=== PATIENT | female | born 1985 | race African-American/Black ===

== ENCOUNTER 2016-07-12 06:13 | Emergency (ER) | payer OTHER ==
[~2016-07-12] VITALS: Ht 165.1 cm; Wt 86.2 kg
[~2016-07-12 06:13] MED LIST: AMOXICILLIN500 MG ORAL; AZITHROMYCIN250 MG ORAL; BACITRACIN-P28.35 GM TP; BACTRIM DS TAB1 EAC1 ORAL; BENADRYL25 MG ORAL; BENADRYL50 MG ORAL; CLINDAMYCIN HC150 MG ORAL; DIFLUCAN100 MG ORAL; EPIPEN 2-P0.3 MG/0.3 IM; IBUPROFEN400 MG ORAL; IBUPROFEN600 MG ORAL; KEFLEX500 MG ORAL; NKM; NORCO 5-325 TA1 EACH ORAL; NYSTATIN OINT15 GM TOPIC; PREDNISONE20 MG ORAL; PREDNISONE50 MG ORAL; TYLENOL325 MG ORAL
[2016-07-12] MEDS ORDERED: NKM (06:23)
[2016-07-12] MEDS ORDERED: Ketorolac 60mg Inj IM ONE (07:00)
[2016-07-12] MEDS ORDERED: Pseudoephedrine 30mg tab ORAL ONE (07:00)
[2016-07-12] MEDS ORDERED: FLONASE ALLERG9.9 ML NS (07:03)
[2016-07-12] MEDS ORDERED: AUGMENTIN 875-1 EAC1 ORAL (07:03)
[2016-07-12] MEDS ORDERED: PSEUDOEPHEDRINE30 MG PO (07:03)
--- NOTE | 2016-07-12 07:15 | Emergency Room Report ---
History of Present Illness General Chief Complaint: Headache Source: Patient Present Illness HPI 30 YO F with 2 days of frontal "sinus pressure" headache. Associated with sinus congestion, mild rhinorrhea, "muffled" hearing bilaterally. Denies fever/ chills, neck pain/stiffness, history of migraine headaches. Denies sick contacts. Didnt take any OTC meds. Allergies: Coded Allergies: PEANUT (Verified Allergy, Unknown, 07/12/16) Patient History Past Medical History: none Past Surgical History: none Pertinent Family History: none Social History: Denies: alcohol use, drug use, smoking Last Menstrual Period: 06/23/2016 Now: No : 2 Para: 2 Immunizations: UTD Reviewed Nursing Documentation: PMH: Agreed, PSxH: Agreed Nursing Documentation-PMH Past Medical History: No History, Except For Hx Asthma: Yes Hx Gastrointestinal Problems: Yes - appendectomy 2001 Review of Systems All Other Systems: negative except mentioned in HPI Physical Exam Vital Signs Date Time Temp Pulse Resp B/P Pulse Ox O2 Delivery O2 Flow Rate FiO2 07/12/16 06:17 98.2 83 16 126/81 99 Room Air Sp02 EP Interpretation: reviewed, normal General Appearance: normal inspection, well appearing, no apparent distress, alert, GCS 15, non-toxic Head: normocephalic, atraumatic Eyes: bilateral eye EOMI, bilateral eye PERRL ENT: normal ENT inspection, hearing grossly normal, normal pharynx, no angioedema, normal voice, TMs + canals normal, uvula midline, nasal congestion, other - +ttp to frontal and maxillary sinuses bilaterally Neck: normal inspection, full range of motion, supple, no meningismus, no bony tend Respiratory: normal inspection, lungs clear, normal breath sounds, no respiratory distress, no retraction, no accessory muscle use, no wheezing Cardiovascular #1: regular rate, rhythm, no edema Gastrointestinal: normal inspection, normal bowel sounds, non tender, soft, no guarding, no hernia Genitourinary: no CVA tenderness Musculoskeletal: normal inspection, back normal, normal range of motion, Jr' s Sign negative Neurologic: normal inspection, alert, oriented x3, responsive, bench grinder III-XII nml as tested, motor strength/tone normal, speech normal Psychiatric: normal inspection, judgement/insight normal, mood/affect normal Skin: normal inspection Lymphatic: normal inspection Medical Decision Making Diagnostic Impression: Primary Impression: Sinusitis Qualified Codes: J01.10 - Acute frontal sinusitis, unspecified Additional Impression: Headache Qualified Codes: G44.89 - Other headache syndrome ER Course 30 YOF with headache, likely from sinusitis. VSS. Afebrile. Low suspicion for SAH or meningitis given well appearance, absence of focal neuro deficits, absence of meningismus, normal vital signs, and duration and intensity of headache is consistent with sinus pressure headache Meds given with improvement Headache improved Neuro exam serially negative for focal deficits Vitals stable on discharge Rx Sudafed, Augmentin, Flonase PMD followup as needed DC home Last Vital Signs Date Time Temp Pulse Resp B/P Pulse Ox O2 Delivery O2 Flow Rate FiO2 07/12/16 06:17 98.2 83 16 126/81 99 Room Air Status: improved Disposition: HOME, SELF-CARE Condition: Improved Scripts Fluticasone Propionate (Flonase Allergy Relief) 9.9 Ml [place].susp 9.9 ML NS BID for Sinus congestion for 7 Days, #1 UNIT Prov: GARFIELD VELAZQUEZ M.D. 07/12/16 Pseudoephedrine Hcl* (SUDAFED*) 30 Mg Tablet 30 MG PO TID for sinus congestion for 7 Days, #30 TAB Prov: GARFIELD VELAZQUEZ M.D. 07/12/16 Amoxicillin/Potassium Clav 875-125* (AUGMENTIN 875-125 TABLET*) 1 Each Tablet 1 TAB ORAL TWICE A DAY for 7 Days, #14 TAB Prov: GARFIELD VELAZQUEZ M.D. 07/12/16 Patient Instructions: Sinus Headache Additional Instructions: - Take sudafed up to 3x a day for sinus congestion/headache - take one before your flight - Take ALL the antibiotics as prescribed until finished - Use Flonase nasal spray 2x a day, one spray each nostril for sinus congestion - Follow up with your doctor in 2-3 days GARFIELD VELAZQUEZ M.D. Jul 12, 2016 07:15
[2016-07-12 07:35] VITALS: BP 126/81
== END 2016-07-12 07:35 | disposition home or self-care (01) ==
LOC: EMR 06:44
DX: J32.9 Chronic sinusitis, unspecified (principal); R51 Headache; J45.909 Unspecified asthma, uncomplicated
CPT/HCPCS: 96372; 99284

== ENCOUNTER 2016-08-20 15:58 | Emergency (ER) | payer OTHER ==
[~2016-08-20] VITALS: Ht 165.1 cm; Wt 81.6 kg
[~2016-08-20 15:58] MED LIST changes: +AUGMENTIN 875-1 EAC1 ORAL; +FLONASE ALLERG9.9 ML NS; +PSEUDOEPHEDRINE30 MG PO
[2016-08-20] MEDS ORDERED: Morphine Sulfate 4mg/ml Inj IVP ONE (16:45)
--- NOTE | 2016-08-20 17:20 | Emergency Room Report ---
History of Present Illness General Chief Complaint: Pain Source: Patient, Medical Record Present Illness HPI Patient is a 31-year-old female who presented after recent surgery to multiple locations on her body with cosmetic surgery. The patient had no one location which had been severely painful however she reported having multiple areas of pain. Patient had been treated in [place]. She denies any current pain prescriptions. She stated that she had not been having any fever. She has not been vomiting. She was noted to have some drains which did no change and drainage. Allergies: Coded Allergies: PEANUT (Verified Allergy, Unknown, 07/12/16) Patient History Past Medical History: see triage record Last Menstrual Period: 08/10/16 Now: No Reviewed Nursing Documentation: PMH: Agreed, PSxH: Agreed Nursing Documentation-PMH Hx Asthma: Yes Hx Gastrointestinal Problems: Yes - appendectomy 2002 Review of Systems All Other Systems: negative except mentioned in HPI Physical Exam Vital Signs Date Time Temp Pulse Resp B/P Pulse Ox O2 Delivery O2 Flow Rate FiO2 08/20/16 16:05 98.1 97 16 111/83 99 Room Air Sp02 EP Interpretation: reviewed, normal General Appearance: normal inspection, well appearing, no apparent distress, alert, GCS 15, non-toxic Head: normocephalic, atraumatic ENT: normal ENT inspection, hearing grossly normal, normal voice Neck: normal inspection, full range of motion, supple, no bony tend Respiratory: normal inspection, lungs clear, normal breath sounds, no respiratory distress, no retraction, no wheezing Cardiovascular #1: regular rate, rhythm, no edema Gastrointestinal: normal inspection, normal bowel sounds, non tender, soft, no guarding, no hernia Genitourinary: no CVA tenderness Musculoskeletal: normal inspection, back normal, normal range of motion Neurologic: normal inspection, alert, oriented x3, responsive, ampoule filler and sealer III-XII nml as tested, speech normal Psychiatric: normal inspection, judgement/insight normal, mood/affect normal Skin: no rash, other - multiple incision CDI, no evident erythema some bruising to both arms Medical Decision Making Diagnostic Impression: Primary Impression: Post-op pain ER Course Patient presented for multiple areas of pain. Differential diagnosis included wasn't limited to postoperative infection, postoperative pain, cellulitis among others.Because of complexity of patient's case laboratory testing and imaging studies were ordered. The patient does appear to have any focal areas of tenderness. Wounds appear to be consistent with a postoperative status. Drains have some serous fluid which does not appear to be purulent nature. Patient was noted to have no fever laboratory testing was ordered. Patient was noted to have minimally elevated white blood count. Patient was noted to have recent surgery and doesn't appear to have a signicant infection requiring IV antibiotics. Patient was given prescriptions for pain medications and oral antibiotics. She was advised to follow up with her physician in the next two days for recheck of labs and drain removal. She was to return if she had any fever, worsening pain or other concerns. Labs Test 08/20/16 17:07 White Blood Count 14.0 K/UL (4.8-10.8) Red Blood Count 4.07 M/UL (4.20-5.40) Hemoglobin 12.6 G/DL (12.0-16.0) Hematocrit 36.8 % (37.0-47.0) Mean Corpuscular Volume 90 FL (80-99) Mean Corpuscular Hemoglobin 31.0 PG (27.0-31.0) Mean Corpuscular Hemoglobin Concent 34.4 G/DL (32.0-36.0) Red Cell Distribution Width 12.1 % (11.6-14.8) Platelet Count 335 K/UL (150-450) Mean Platelet Volume 6.3 FL (6.5-10.1) Neutrophils (%) (Auto) 74.4 % (45.0-75.0) Lymphocytes (%) (Auto) 18.1 % (20.0-45.0) Monocytes (%) (Auto) 4.1 % (1.0-10.0) Eosinophils (%) (Auto) 1.9 % (0.0-3.0) Basophils (%) (Auto) 1.6 % (0.0-2.0) Prothrombin Time 9.4 SEC (9.30-11.50) Prothromb Time International Ratio 0.9 (0.9-1.1) Activated Partial Thromboplast Time 25 SEC (23-33) Sodium Level 140 mEQ/L (135-145) Potassium Level 3.9 mEQ/L (3.4-4.9) Chloride Level 100 mEQ/L (98-107) Carbon Dioxide Level 24 mEQ/L (20-30) Anion Gap 16 (5-15) Blood Urea Nitrogen 11 mg/dL (7-23) Creatinine 0.7 mg/dL (0.5-0.9) Estimat Glomerular Filtration Rate > 60 mL/min (>60) Glucose Level 89 mg/dL (74-106) Calcium Level 8.7 mg/dL (8.6-10.2) Total Bilirubin 0.5 mg/dL (0.0-1.2) Aspartate Amino Transf (AST/SGOT) 81 U/L (5-40) Alanine Aminotransferase (ALT/SGPT) 100 U/L (3-33) Alkaline Phosphatase 58 U/L (35-104) Total Creatine Kinase 149 U/L (26-140) Total Protein 6.6 g/dL (6.6-8.7) Albumin 3.5 g/dL (3.5-5.2) Globulin 3.1 g/dL Albumin/Globulin Ratio 1.1 (1.0-2.7) Human Chorionic Gonadotropin, Qual Negative Last Vital Signs Date Time Temp Pulse Resp B/P Pulse Ox O2 Delivery O2 Flow Rate FiO2 08/20/16 16:05 98.1 97 16 111/83 99 Room Air Status: improved Disposition: HOME, SELF-CARE Condition: Stable Scripts Cephalexin* (KEFLEX*) 500 Mg Capsule 500 MG ORAL Q6H, #28 CAP 0 Refills Prov: Norman Urbano 08/20/16 Hydrocodone Bit/Acetaminophen 5-325* (NORCO 5-325*) 1 Each Tablet 1 TAB ORAL Q6H Y for For Pain, #10 TAB 0 Refills Prov: Norman Urbano 08/20/16 [facility] ([facility]P) Norman Urbano Aug 20, 2016 17:20
[2016-08-20 17:25] LABS: BASOPHILS % (AUTO) 1.6 % (0.0-2.0); EOSINOPHILS % (AUTO) 1.9 % (0.0-3.0); LYMPHOCYTES % (AUTO) 18.1 % (20.0-45.0); MEAN CORPUSCULAR HGB CONC 34.4 G/DL (32.0-36.0); MEAN CORPUSCULAR VOLUME 90 FL (80-99); MEAN PLATELET VOLUME 6.3 FL (6.5-10.1); MONOCYTES % (AUTO) 4.1 % (1.0-10.0); NEUTROPHILS % (AUTO) 74.4 % (45.0-75.0); PLATELET COUNT 335 K/UL (150-450); RED BLOOD COUNT 4.07 M/UL (4.20-5.40); RED CELL DISTRIBUTION WIDTH 12.1 % (11.6-14.8)
[2016-08-20 17:31] VITALS: BP 119/71
[2016-08-20 17:38] LABS: INR 0.9 (0.9-1.1); PROTHROMBIN TIME 9.4 SEC (9.30-11.50)
[2016-08-20 17:43] LABS: ALANINE AMINOTRANSFERASE 100 U/L (3-33); ALBUMIN/GLOBULIN RATIO 1.1 (1.0-2.7); ANION GAP 16 (5-15); ASPARTATE AMINO TRANSFERASE 81 U/L (5-40); CALCIUM 8.7 mg/dL (8.6-10.2); CARBON DIOXIDE 24 mEQ/L (20-30); CHLORIDE 100 mEQ/L (98-107); CREATININE 0.7 mg/dL (0.5-0.9); GLOMERULAR FILTRATION RATE > 60 mL/min (>60); HEMOLYSIS 38; POTASSIUM 3.9 mEQ/L (3.4-4.9); SODIUM 140 mEQ/L (135-145); TOTAL PROTEIN 6.6 g/dL (6.6-8.7)
[2016-08-20 17:57] VITALS: BP 121/74
[2016-08-20] MEDS ORDERED: cefTRIAXone 1 GM in NS 55 ML IVPB ONE (18:00)
[2016-08-20] MEDS ORDERED: Tubing IV Secondary IV ONE (18:02)
[2016-08-20] MEDS ORDERED: NS 55 ML IV ONE (18:02)
[2016-08-20] MEDS ORDERED: NORCO 5-325 TA1 EACH ORAL (19:31)
[2016-08-20] MEDS ORDERED: KEFLEX500 MG ORAL (19:31)
[2016-08-20 20:36] VITALS: BP 124/84
[2016-08-20 20:39] VITALS: BP 124/84
== END 2016-08-20 20:39 | disposition home or self-care (01) ==
LOC: EMR 16:23
DX: G89.18 Other acute postprocedural pain (principal); J45.909 Unspecified asthma, uncomplicated; Z91.010 Allergy to peanuts; Z90.49 Acquired absence of other specified parts of digestive tract
CPT/HCPCS: 36415; 80053; 82550; 84703; 85025; 85610; 85730; 96374; 96375; 99284; J0696; J2270; J2405

== ENCOUNTER 2016-11-17 14:10 | Emergency (ER) | payer OTHER ==
[~2016-11-17] VITALS: Ht 165.1 cm; Wt 79.4 kg
[2016-11-17] MEDS ORDERED: OCUFLOX5 ML OP (14:38)
[2016-11-17 14:40] VITALS: BP 122/79
[2016-11-17 14:43] VITALS: BP 122/79
--- NOTE | 2016-11-17 18:23 | Emergency Room Report ---
History of Present Illness General Chief Complaint: Eye Problems Source: Patient, Medical Record Present Illness HPI The patient is a 31-year-old female presenting with bilateral eye pain. She noticed eye redness as well as yellow discharge yesterday which has continued today. She denies any known sick contacts or recent travel. Pain is described as a 9/10 burning to both eyes, does not radiate. Worse with light. She denies any other symptoms including N, V, F, chills, SAUNDERS, dizziness Allergies: Coded Allergies: PEANUT (Verified Allergy, Unknown, 07/12/16) Patient History Past Medical History: see triage record Pertinent Family History: none Last Menstrual Period: 10/21/16 Reviewed Nursing Documentation: PMH: Agreed, PSxH: Agreed Nursing Documentation-PMH Past Medical History: No History, Except For Hx Asthma: Yes - Acute bronchitis Hx Gastrointestinal Problems: Yes - appendectomy 2001 Review of Systems All Other Systems: negative except mentioned in HPI Physical Exam Vital Signs Date Time Temp Pulse Resp B/P Pulse Ox O2 Delivery O2 Flow Rate FiO2 11/17/16 14:19 98.2 100 14 122/79 98 Room Air Sp02 EP Interpretation: reviewed, normal General Appearance: no apparent distress, alert, GCS 15, non-toxic Head: normocephalic, atraumatic Eyes: bilateral eye PERRL, bilateral eye Scleral Injection, bilateral eye other - yellow crusting ENT: hearing grossly normal, normal pharynx, no angioedema, normal voice Neurologic: alert, oriented x3, responsive, motor strength/tone normal, sensory intact, speech normal Psychiatric: judgement/insight normal, memory normal, mood/affect normal, no suicidal/homicidal ideation Skin: normal color, no rash, warm/dry, well hydrated Lymphatic: no adenopathy Medical Decision Making PA Attestation Dr. Becker is my supervising physician. Patient management was discussed with my supervising physician Diagnostic Impression: Primary Impression: Bacterial conjunctivitis ER Course The patient is a 31-year-old female presenting with bilateral eye pain Differential diagnoses considered but not limited to allergic conjunctivitis, bacterial conjunctivitis, viral conjunctivitis, blepharitis, hordeolum Physical exam: Vitals within normal limits. No apparent distress HEENT: There is bilat eye injection with yellow discharge. No eyelid edema. EOMI. PERRL Otherwise exam is unremarkable The patient will be discharged home with a prescription for ofloxacin and will follow up with PMD. ER precautions are given Last Vital Signs Date Time Temp Pulse Resp B/P Pulse Ox O2 Delivery O2 Flow Rate FiO2 11/17/16 14:43 98.2 67 14 122/79 98 Room Air Status: improved Disposition: HOME, SELF-CARE Condition: Improved Scripts Ofloxacin (OCUFLOX) 5 Ml Drops 1 DROP OP Q4HR, #5 ML Prov: CYNDI WHEELER 11/17/16 [facility] Patient Instructions: Bacterial Conjunctivitis Additional Instructions: I discussed my findings with the patient. All questions and concerns have been answered. Treatment and medication compliance have been addressed. I advised the patient that they need to follow up with PMD in 3-5 days. Return to ED if symptoms worsen, new symptoms arise, or if needed for any reason. Patient verbalized understanding of discharge instructions. CYNDI WHEELER Nov 17, 2016 18:23
== END 2016-11-17 14:55 | disposition home or self-care (01) ==
LOC: EMR 14:30
DX: H10.89 Other conjunctivitis (principal); B96.89 Other specified bacterial agents as the cause of diseases classified elsewhere; Z91.010 Allergy to peanuts
CPT/HCPCS: 99283

== ENCOUNTER 2016-12-02 20:48 | Emergency (ER) | payer OTHER ==
[~2016-12-02] VITALS: Ht 165.1 cm; Wt 79.4 kg
[~2016-12-02 20:48] MED LIST changes: +OCUFLOX5 ML OP
[2016-12-02 21:00] VITALS: BP 122/80
[2016-12-02] MEDS ORDERED: IBUPROFEN600 MG ORAL (21:09)
[2016-12-02] MEDS ORDERED: ALBUTEROL SULF8.5 GM INH (21:09)
[2016-12-02] MEDS ORDERED: NEXAFED30 MG ORAL (21:09)
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
[2016-12-02 21:21] VITALS: BP 122/80
== END 2016-12-02 21:21 | disposition home or self-care (01) ==
LOC: EMR 21:11
DX: J06.9 Acute upper respiratory infection, unspecified (principal); B97.89 Other viral agents as the cause of diseases classified elsewhere; Z91.010 Allergy to peanuts; Z90.89 Acquired absence of other organs
CPT/HCPCS: 99284

== ENCOUNTER 2017-05-21 12:35 | Emergency (ER) | payer MEDICAID, OTHER ==
[~2017-05-21] VITALS: Ht 165.1 cm; Wt 79.4 kg
[~2017-05-21 12:35] MED LIST changes: +ALBUTEROL SULF8.5 GM INH; +NEXAFED30 MG ORAL
[2017-05-21 12:38] VITALS: BP 125/67
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
[2017-05-21] MEDS ORDERED: IBUPROFEN600 MG ORAL (13:25)
[2017-05-21] MEDS ORDERED: ROBAXIN500 MG PO (13:25)
[2017-05-21 13:47] VITALS: BP 128/69
== END 2017-05-21 13:50 | disposition home or self-care (01) ==
LOC: EMR 13:00
DX: M54.2 Cervicalgia (principal); M54.9 Dorsalgia, unspecified; Z90.49 Acquired absence of other specified parts of digestive tract; J45.909 Unspecified asthma, uncomplicated; Z91.010 Allergy to peanuts
CPT/HCPCS: 99283

== ENCOUNTER 2017-06-27 09:58 | Emergency (ER) | payer MEDICAID ==
[~2017-06-27] VITALS: Ht 165.1 cm; Wt 77.1 kg
[~2017-06-27 09:58] MED LIST changes: +ROBAXIN500 MG PO
[2017-06-27 10:15] VITALS: BP 127/77
[2017-06-27] MEDS ORDERED: Ketorolac 30mg Inj IV ONE (10:30)
[2017-06-27] MEDS ORDERED: ZOFRAN ODT4 MG ORAL (11:23)
[2017-06-27] MEDS ORDERED: IBUPROFEN600 MG ORAL (11:23)
[2017-06-27] MEDS ORDERED: AMOXICILLIN500 MG ORAL (11:23)
[2017-06-27 18:19] VITALS: BP 136/77
--- NOTE | 2017-06-29 21:49 | Emergency Room Report ---
History of Present Illness General Chief Complaint: Sore Throat Source: Patient Present Illness HPI 31-year-old female presents ED for evaluation. States for the last 3 days she' s been experiencing sore throat with chills and body aches. Afebrile in triage. States it is painful to swallow. Pain is throbbing, 8 out of 10, nonradiating. Denies cough. Denies earache. No other aggravating or relieving factors. Denies any other associated symptoms Allergies: Coded Allergies: PEANUT (Verified Allergy, Unknown, 07/12/16) Patient History Past Medical History: asthma Past Surgical History: appy Pertinent Family History: none Social History: Denies: smoking, alcohol use, drug use Now: No Immunizations: UTD Reviewed Nursing Documentation: PMH: Agreed, PSxH: Agreed Nursing Documentation-PMH Past Medical History: No Stated History Hx Asthma: Yes - Acute bronchitis Hx Gastrointestinal Problems: Yes - appendectomy 2001 Review of Systems All Other Systems: negative except mentioned in HPI Physical Exam Vital Signs Date Time Temp Pulse Resp B/P (MAP) Pulse Ox O2 Delivery O2 Flow Rate FiO2 06/27/17 10:08 98.1 76 16 127/77 95 Room Air 98.1 Sp02 EP Interpretation: reviewed, normal General Appearance: no apparent distress, alert, GCS 15, non-toxic Head: normocephalic, atraumatic Eyes: bilateral eye normal inspection, bilateral eye PERRL ENT: hearing grossly normal, normal voice, TMs + canals normal, pharyngeal erythema, tonsillar exudate Neck: full range of motion, supple/symm/no masses Respiratory: chest non-tender, lungs clear, normal breath sounds, speaking full sentences Cardiovascular #1: regular rate, rhythm, no edema Cardiovascular #2: 2+ carotid (R), 2+ carotid (L), 2+ radial (R), 2+ radial (L) , 2+ dorsalis pedis (R), 2+ dorsalis pedis (L) Gastrointestinal: normal bowel sounds, non tender, soft, non-distended, no guarding, no rebound Rectal: deferred Genitourinary: normal inspection, no CVA tenderness Musculoskeletal: back normal, gait/station normal, normal range of motion, non- tender Neurologic: alert, oriented x3, responsive, motor strength/tone normal, sensory intact, speech normal Psychiatric: judgement/insight normal, memory normal, mood/affect normal, no suicidal/homicidal ideation Reflexes: 3+ bicep (R), 3+ bicep (L), 3+ tricep (R), 3+ tricep (L), 3+ knee (R) , 3+ knee (L) Skin: normal color, no rash, warm/dry, well hydrated Lymphatic: no adenopathy Medical Decision Making Diagnostic Impression: Primary Impression: Pharyngitis Qualified Codes: J02.9 - Acute pharyngitis, unspecified ER Course Hospital Course 31-year-old female presents to ED complaining of sore throat + chills Differential diagnoses include: URI, pharyngitis, otitis media Clinical course Patient placed on stretcher. After initial history, physical exam reveals a female in no acute distress. Bilateral TM unremarkable. There is pharyngeal erythema w/ tonsillar exudates. No lymphadenopathy. Clinical findings consistent with pharyngitis. Patient given IV fluids, Toradol. On reassessment feels better. Discussed findings with patient Diagnosis - pharyngitis Stable and discharged home with prescriptions for Motrin, amoxicillin, zofran. Instructed to followup with PMD. return to ED if symptoms recur or worsen Last Vital Signs Date Time Temp Pulse Resp B/P (MAP) Pulse Ox O2 Delivery O2 Flow Rate FiO2 06/27/17 18:19 97.9 16 136/77 100 06/27/17 10:15 Room Air 06/27/17 10:08 76 Status: improved Disposition: HOME, SELF-CARE Condition: Stable Scripts Ondansetron Odt* (ZOFRAN ODT*) 4 Mg Tab.rapdis 4 MG ORAL Q6H Y for Nausea & Vomiting, #30 TAB 0 Refills Prov: SHELLY ORNELAS M.D. 06/27/17 Ibuprofen* (MOTRIN*) 600 Mg Tablet 600 MG ORAL Q8H Y for For Pain, #30 TAB 0 Refills Prov: SHELLY ORNELAS M.D. 06/27/17 Amoxicillin* (AMOXIL*) 500 Mg Capsule 500 MG ORAL THREE TIMES A DAY, #21 CAP Prov: SHELLY ORNELAS M.D. 06/27/17 Referrals: [facility],REFERRING (PCP) Patient Instructions: Pharyngitis, [id number] SHELLY ORNELAS M.D. Jun 29, 2017 21:49
== END 2017-06-27 12:10 | disposition home or self-care (01) ==
LOC: EMR 11:20
DX: J02.9 Acute pharyngitis, unspecified (principal); J45.909 Unspecified asthma, uncomplicated; Z91.010 Allergy to peanuts
CPT/HCPCS: 96374; 96375; 99284; J1885; J2405

== ENCOUNTER 2018-04-11 03:07 | Emergency (ER) | payer MEDICAID ==
[~2018-04-11] VITALS: Ht 165.1 cm; Wt 77.1 kg
[~2018-04-11 03:07] MED LIST changes: +ZOFRAN ODT4 MG ORAL
[2018-04-11] MEDS ORDERED: LORAZEPAM2 MG ORAL (03:18)
[2018-04-11 03:19] VITALS: BP 137/95
[2018-04-11] MEDS ORDERED: Sodium Chloride 500ML 500 ML IV ONE (03:41)
[2018-04-11] MEDS ORDERED: Albuterol ud Inhalation HHN ONE (03:45)
[2018-04-11] MEDS ORDERED: Ipratropium 0.02% Inh Soln 2.5ml UD HHN ONE (03:45)
[2018-04-11 03:53] LABS: APPEARANCE,URINE SLIGHTLY CLOUDY; BILIRUBIN, URINE NEGATIVE (NEGATIVE); GLUCOSE, URINE (UA) NEGATIVE (NEGATIVE); KETONES,URINE 1+ (NEGATIVE); LEUKOCYTE ESTERASE ,URINE 2+ (NEGATIVE); NITRITE,URINE NEGATIVE (NEGATIVE); PH,URINE 6 (4.5-8.0); PROTEIN,URINE 2+ (NEGATIVE); UROBILINOGEN,URINE NORMAL MG/DL (0.0-1.0)
[2018-04-11 04:06] LABS: COLOR,URINE YELLOW
--- NOTE | 2018-04-11 04:24 | Emergency Room Report ---
History of Present Illness General Chief Complaint: Vaginal Source: Patient Present Illness HPI 32-year-old female presents ED for evaluation. Complaining of sore throat and chest tightness 1 day. Notes cough. History of bronchitis. Cough is dry. Denies fevers chills. Pain is dull, 7 out of 10, nonradiating. States she feels dehydrated. Also states that she pulled a condom out from her vagina today. States it was there for approximately 2 days. Notes a foul discharge. Denies any pelvic pain. Denies any spotting. No other aggravating relieving factors. Denies any other associated symptoms Allergies: Coded Allergies: PEANUT (Verified Allergy, Unknown, 04/11/18) Patient History Past Medical History: asthma Past Surgical History: appy Pertinent Family History: none Social History: Denies: smoking, alcohol use, drug use Last Menstrual Period: 03/23/2018 Now: No Immunizations: UTD Reviewed Nursing Documentation: PMH: Agreed; PSxH: Agreed Nursing Documentation-PMH Hx Asthma: Yes - Acute bronchitis Hx Gastrointestinal Problems: Yes - appendectomy 2001 Review of Systems All Other Systems: negative except mentioned in HPI Physical Exam Vital Signs Date Time Temp Pulse Resp B/P (MAP) Pulse Ox O2 Delivery O2 Flow Rate FiO2 04/11/18 03:11 98.4 113 22 137/95 98 04/11/18 03:19 Room Air 04/11/18 03:52 21 Sp02 EP Interpretation: reviewed, normal General Appearance: no apparent distress, alert, GCS 15, non-toxic Head: normocephalic, atraumatic Eyes: bilateral eye normal inspection, bilateral eye PERRL ENT: hearing grossly normal, normal pharynx, no angioedema, normal voice, TMs + canals normal Neck: full range of motion, supple/symm/no masses Respiratory: chest non-tender, decreased breath sounds, speaking full sentences Cardiovascular #1: regular rate, rhythm, no edema Cardiovascular #2: 2+ carotid (R), 2+ carotid (L), 2+ radial (R), 2+ radial (L) , 2+ dorsalis pedis (R), 2+ dorsalis pedis (L) Gastrointestinal: normal bowel sounds, non tender, soft, non-distended, no guarding, no rebound Rectal: deferred Genitourinary: no CVA tenderness, other - real estate officer present - white cervical discharge. no CMT. no adnexal tenderness Musculoskeletal: back normal, gait/station normal, normal range of motion, non- tender Neurologic: alert, oriented x3, responsive, motor strength/tone normal, sensory intact, speech normal Psychiatric: judgement/insight normal, memory normal, mood/affect normal, no suicidal/homicidal ideation Reflexes: 3+ bicep (R), 3+ bicep (L), 3+ tricep (R), 3+ tricep (L), 3+ knee (R) , 3+ knee (L) Skin: normal color, no rash, warm/dry, well hydrated Lymphatic: no adenopathy Medical Decision Making Diagnostic Impression: Primary Impression: Vaginal discharge Additional Impression: Bronchitis ER Course Hospital Course 32-year-old female presents to ED complaining of SOB, sore throat. also c/o vaginal discharge Differential diagnoses include: URI, bronchitis, asthma/COPD, pneumonia Clinical course Patient placed on stretcher. After initial history, physical exam reveals female in no acute distress. There is minimal pharyngeal erythema. No exudates. No lymphadenopathy. Reduced breath sounds bilaterally. Warehouse Handler present. On pelvic exam there is no evidence of foreign body. There is significant cervical discharge. wet mount collected i ordered nebulizer treatments, IVFs, wet mount, UA UA shows some bacteria, wet mount also shows some bacteria no clue cells or yeast. Concerning for STI. Discussed with patient. Ordered Rocephin here we'll discharge with doxycycline. breathing overall improved. Consistent with bronchitis Safe for discharge with close outpatient follow-up Diagnosis - bronchitis, vaginal discharge Stable and discharged home with prescriptions for Rx doxycycline, albuterol, prednisone. Instructed to followup with PMD. Return to ED if symptoms recur or worsen Labs Test 04/11/18 03:42 Urine Color Yellow Urine Appearance Slightly cloudy Urine pH 6 (4.5-8.0) Urine Specific [place] 1.025 (1.005-1.035) Urine Protein 2+ (NEGATIVE) Urine Glucose (UA) Negative (NEGATIVE) Urine Ketones 1+ (NEGATIVE) Urine Blood 1+ (NEGATIVE) Urine Nitrite Negative (NEGATIVE) Urine Bilirubin Negative (NEGATIVE) Urine Urobilinogen Normal MG/DL (0.0-1.0) Urine Leukocyte Esterase 2+ (NEGATIVE) Urine RBC 0-2 /HPF (0 - 2) Urine WBC 10-15 /HPF (0 - 2) Urine Squamous Epithelial Cells Few /LPF (NONE/OCC) Urine Bacteria Few /HPF (NONE) Urine Mucus Many /LPF (NONE/OCC) Urine HCG, Qualitative Negative (NEGATIVE) Last Vital Signs Date Time Temp Pulse Resp B/P (MAP) Pulse Ox O2 Delivery O2 Flow Rate FiO2 04/11/18 03:54 90 20 97 Room Air 21 04/11/18 03:19 98.4 137/95 Status: improved Disposition: HOME, SELF-CARE Condition: Stable Scripts Prednisone* (PREDNISONE*) 20 Mg Tablet 40 MG ORAL DAILY for 5 Days, TAB Prov: Timothy Gilman MD 04/11/18 Albuterol Sulfate* (ALBUTEROL SULFATE MDI*) 8.5 Gm Hfa.aer.ad 2 PUFF INH Q6H, #1 EA 0 Refills Prov: Timothy Gilman MD 04/11/18 Doxycycline Monohydrate* (DOXYCYCLINE MONOHYDRATE*) 100 Mg Capsule 100 MG ORAL Q12H, #14 CAP 0 Refills Prov: Timothy Gilman MD 04/11/18 Referrals: [facility],REFERRING (PCP) Timothy Gilman MD Apr 11, 2018 04:24
[2018-04-11] MEDS ORDERED: DOXYCYCLINE MO100 MG ORAL (04:27)
[2018-04-11] MEDS ORDERED: PREDNISONE20 MG ORAL (04:27)
[2018-04-11] MEDS ORDERED: ALBUTEROL SULF8.5 GM INH (04:27)
[2018-04-11] MEDS ORDERED: Lidocaine 1% MPF 10mg/ml 5ml INJ ONE (04:30)
[2018-04-11 04:57] VITALS: BP 139/87
== END 2018-04-11 04:59 | disposition home or self-care (01) ==
LOC: EMR 03:26
DX: N89.8 Other specified noninflammatory disorders of vagina (principal); J45.909 Unspecified asthma, uncomplicated; Z91.010 Allergy to peanuts
CPT/HCPCS: 81003; 81025; 87086; 87210; 94640; 94664; 96372; 99284; J0696; J7040

== ENCOUNTER 2018-05-06 23:17 | Emergency (ER) | payer MEDICAID ==
[~2018-05-06] VITALS: Ht 165.1 cm; Wt 77.1 kg
[~2018-05-06 23:17] MED LIST changes: +DOXYCYCLINE MO100 MG ORAL; +LORAZEPAM2 MG ORAL
[2018-05-06 23:40] VITALS: BP 129/75
--- NOTE | 2018-05-06 23:40 | NUR ---
ED Nurse Note: PATIENT REPORTS COMPLAINTS OF ABDOMINAL PAIN AFTER SHE EATS WITH NVD X 2 WEEKS.
--- NOTE | 2018-05-06 23:53 | Emergency Room Report ---
History of Present Illness General Chief Complaint: Abdominal Pain Source: Patient Present Illness HPI Patient presents with complaints of diffuse abdominal pain and cramping Vomiting and diarrhea Reports that 2 weeks ago she felt like someone slipped something in her drink she reports that she was here and was told that she had cystitis Her symptoms have been ongoing since then Denies any chest pain or shortness of breath denies any recent travel Denies any vaginal discharge Cramping is diffuse Denies any fevers or chills Allergies: Coded Allergies: PEANUT (Verified Allergy, Unknown, 05/06/18) Patient History Past Medical History: see triage record Pertinent Family History: none Last Menstrual Period: [id number] Now: No Reviewed Nursing Documentation: PMH: Agreed; PSxH: Agreed Nursing Documentation-PMH Past Medical History: No Stated History Hx Asthma: Yes - Acute bronchitis Hx Gastrointestinal Problems: Yes - appendectomy 2001 Review of Systems All Other Systems: negative except mentioned in HPI Physical Exam Vital Signs Date Time Temp Pulse Resp B/P (MAP) Pulse Ox O2 Delivery O2 Flow Rate FiO2 05/06/18 23:25 98.1 82 14 129/75 99 Room Air Sp02 EP Interpretation: reviewed, normal General Appearance: well appearing, no apparent distress Head: normocephalic, atraumatic Eyes: bilateral eye PERRL, bilateral eye EOMI ENT: hearing grossly normal, normal pharynx, TMs + canals normal, uvula midline Neck: full range of motion, supple, no meningismus, no bony tend Respiratory: lungs clear, normal breath sounds, no rhonchi, no respiratory distress, no retraction, no accessory muscle use Cardiovascular #1: normal peripheral pulses, regular rate, rhythm, no edema, no gallop, no JVD, no murmur Gastrointestinal: normal bowel sounds, non tender, soft, no mass, no organomegaly, non-distended, no guarding, no hernia, no pulsatile mass, no rebound Genitourinary: no CVA tenderness Musculoskeletal: normal inspection Neurologic: oriented x3, responsive, housing assistant property manager III-XII nml as tested, motor strength/ tone normal, sensory intact Psychiatric: mood/affect normal Skin: normal color, no rash, warm/dry, palpation normal Lymphatic: normal inspection, no adenopathy Medical Decision Making Diagnostic Impression: Primary Impression: Abdominal pain Additional Impressions: UTI (urinary tract infection) Vomiting Diarrhea ER Course With the patient's history and examination, multiple differentials considered, including but not limited to , ectopic , ovarian torsion, gastritis, cholecystitis, pancreatitis, appendicitis Patient's blood work is at baseline levels patient has had recent CT imaging and this was not repeated Urine sample showed questionable infectious pathology on repeat questioning she does report that she felt she might have a UTI Patient does not appear septic or toxic will be placed on oral antibiotics as well patient requires close follow-up by primary physician and return with any change in condition Labs Test 05/06/18 23:55 05/07/18 00:30 White Blood Count 10.6 K/UL (4.8-10.8) Red Blood Count 4.42 M/UL (4.20-5.40) Hemoglobin 13.2 G/DL (12.0-16.0) Hematocrit 39.7 % (37.0-47.0) Mean Corpuscular Volume 90 FL (80-99) Mean Corpuscular Hemoglobin 29.9 PG (27.0-31.0) Mean Corpuscular Hemoglobin Concent 33.3 G/DL (32.0-36.0) Red Cell Distribution Width 13.0 % (11.6-14.8) Platelet Count 303 K/UL (150-450) Mean Platelet Volume 6.5 FL (6.5-10.1) Neutrophils (%) (Auto) 63.9 % (45.0-75.0) Lymphocytes (%) (Auto) 28.1 % (20.0-45.0) Monocytes (%) (Auto) 5.3 % (1.0-10.0) Eosinophils (%) (Auto) 1.3 % (0.0-3.0) Basophils (%) (Auto) 1.4 % (0.0-2.0) Sodium Level 142 MMOL/L (136-145) Potassium Level 3.2 MMOL/L (3.5-5.1) Chloride Level 105 MMOL/L (98-107) Carbon Dioxide Level 29 MMOL/L (21-32) Anion Gap 8 mmol/L (5-15) Blood Urea Nitrogen 10 mg/dL (7-18) Creatinine 1.0 MG/DL (0.55-1.30) Estimat Glomerular Filtration Rate > 60 mL/min (>60) Glucose Level 132 MG/DL (74-106) Calcium Level 8.5 MG/DL (8.5-10.1) Total Bilirubin 0.2 MG/DL (0.2-1.0) Aspartate Amino Transf (AST/SGOT) 17 U/L (15-37) Alanine Aminotransferase (ALT/SGPT) 32 U/L (12-78) Alkaline Phosphatase 60 U/L (46-116) Total Protein 6.9 G/DL (6.4-8.2) Albumin 3.3 G/DL (3.4-5.0) Globulin 3.6 g/dL Albumin/Globulin Ratio 0.9 (1.0-2.7) Lipase 131 U/L (73-393) Urine Color Yellow Urine Appearance Clear Urine pH 5 (4.5-8.0) Urine Specific [place] 1.030 (1.005-1.035) Urine Protein 1+ (NEGATIVE) Urine Glucose (UA) 1+ (NEGATIVE) Urine Ketones 1+ (NEGATIVE) Urine Blood 1+ (NEGATIVE) Urine Nitrite Positive (NEGATIVE) Urine Bilirubin Negative (NEGATIVE) Urine Urobilinogen Normal MG/DL (0.0-1.0) Urine Leukocyte Esterase 1+ (NEGATIVE) Urine RBC 2-4 /HPF (0 - 2) Urine WBC 2-4 /HPF (0 - 2) Urine Squamous Epithelial Cells Moderate /LPF (NONE/OCC) Urine Calcium Oxalate Crystals Moderate /LPF (NONE) Urine Bacteria Few /HPF (NONE) Urine HCG, Qualitative Negative (NEGATIVE) Urine Opiates Screen Positive (NEGATIVE) Urine Barbiturates Screen Negative (NEGATIVE) Phencyclidine (PCP) Screen Negative (NEGATIVE) Urine Amphetamines Screen Negative (NEGATIVE) Urine Benzodiazepines Screen Negative (NEGATIVE) Urine Cocaine Screen Negative (NEGATIVE) Urine Marijuana (THC) Screen Positive (NEGATIVE) Last Vital Signs Date Time Temp Pulse Resp B/P (MAP) Pulse Ox O2 Delivery O2 Flow Rate FiO2 05/06/18 23:40 98.1 87 14 129/75 99 Room Air Status: improved Disposition: HOME, SELF-CARE Condition: Improved Scripts Nitrofurantoin Monohyd/M-Cryst* (MACROBID 100 MG*) 100 Mg Capsule 100 MG ORAL EVERY 12 HOURS for 5 Days, CAP Prov: Fernanda Vasquez DO 05/07/18 Famotidine (PEPCID AC) 20 Mg Tablet 20 MG PO DAILY, #7 TAB Prov: Fernanda Vasquez DO 05/07/18 Ondansetron (Zofran) 4 Mg Tablet 4 MG ORAL Q6H PRN for Nausea & Vomiting, #12 TAB Prov: Fernanda Vasquez DO 05/07/18 Additional Instructions: Patient is provided with the discharge instructions notified to follow up with primary doctor in the next 2-3 days otherwise return to the er with any worsening symptoms. Please note that this report is being documented using DRAGON technology. This can lead to erroneous entry secondary to incorrect interpretation by the dictating instrument. Fernanda Vasquez DO May 06, 2018 23:53
[2018-05-07] MEDS ORDERED: Morphine Sulfate 4mg/ml Inj (IV/IM USE ONLY) IVP ONE
[2018-05-07] MEDS ORDERED: Metoclopramide 10mg/2ml Inj IVP ONE
--- NOTE | 2018-05-07 00:31 | NUR ---
ED Nurse Note: Patient reports reduced pain. Patient attempting to void at this time.
[2018-05-07 00:37] LABS: BASOPHILS % (AUTO) 1.4 % (0.0-2.0); EOSINOPHILS % (AUTO) 1.3 % (0.0-3.0); HEMATOCRIT 39.7 % (37.0-47.0); HEMOGLOBIN 13.2 G/DL (12.0-16.0); LYMPHOCYTES % (AUTO) 28.1 % (20.0-45.0); MEAN CORPUSCULAR VOLUME 90 FL (80-99); MONOCYTES % (AUTO) 5.3 % (1.0-10.0); NEUTROPHILS % (AUTO) 63.9 % (45.0-75.0); PLATELET COUNT 303 K/UL (150-450); RED BLOOD COUNT 4.42 M/UL (4.20-5.40); WHITE BLOOD COUNT 10.6 K/UL (4.8-10.8)
[2018-05-07 00:47] LABS: ANION GAP 8 mmol/L (5-15); BLOOD UREA NITROGEN 10 mg/dL (7-18); CALCIUM 8.5 MG/DL (8.5-10.1); CARBON DIOXIDE 29 MMOL/L (21-32); CHLORIDE 105 MMOL/L (98-107); POTASSIUM 3.2 MMOL/L (3.5-5.1); SODIUM 142 MMOL/L (136-145)
[2018-05-07 00:52] LABS: ALANINE AMINOTRANSFERASE 32 U/L (12-78); ALBUMIN 3.3 G/DL (3.4-5.0); ALBUMIN/GLOBULIN RATIO 0.9 (1.0-2.7); ALKALINE PHOSPHATASE 60 U/L (46-116); ASPARTATE AMINO TRANSFERASE 17 U/L (15-37); BILIRUBIN,TOTAL 0.2 MG/DL (0.2-1.0)
[2018-05-07 01:01] LABS: APPEARANCE,URINE CLEAR; BILIRUBIN, URINE NEGATIVE (NEGATIVE); GLUCOSE, URINE (UA) 1+ (NEGATIVE); KETONES,URINE 1+ (NEGATIVE); LEUKOCYTE ESTERASE ,URINE 1+ (NEGATIVE); NITRITE,URINE POSITIVE (NEGATIVE); PH,URINE 5 (4.5-8.0); PROTEIN,URINE 1+ (NEGATIVE); UROBILINOGEN,URINE NORMAL MG/DL (0.0-1.0)
--- NOTE | 2018-05-07 01:13 | NUR ---
ED Nurse Note: Patient is resting, sleeping no s/s of acute distress.
[2018-05-07 01:22] LABS: COLOR,URINE YELLOW
[2018-05-07] MEDS ORDERED: PEPCID AC20 M2 PO (02:11)
[2018-05-07] MEDS ORDERED: ZOFRAN4 M1 ORAL (02:11)
[2018-05-07 02:24] VITALS: BP 129/75
--- NOTE | 2018-05-07 02:24 | NUR ---
ED Nurse Note: Patient cleared for discharge, no s/s of acute ,distress. patient vebalized understanding of discharge instructions. patient is ambulatory with steady gait. iv removed, id band removed.
[2018-05-07] MEDS ORDERED: NITROFURANTOIN100 M2 ORAL (02:26)
== END 2018-05-07 02:33 | disposition home or self-care (01) ==
LOC: EMR 23:43
DX: R10.9 Unspecified abdominal pain (principal); N39.0 Urinary tract infection, site not specified; R19.7 Diarrhea, unspecified; R11.10 Vomiting, unspecified; Z91.010 Allergy to peanuts; Z90.49 Acquired absence of other specified parts of digestive tract
CPT/HCPCS: 36415; 80053; 80307; 81003; 81025; 83690; 85025; 96361; 96374; 96375; 99284; J2270; J2765

== ENCOUNTER 2018-05-12 00:42 | Emergency (ER) | payer MEDICAID, OTHER ==
[~2018-05-12] VITALS: Ht 165.1 cm; Wt 77.1 kg
[~2018-05-12 00:42] MED LIST changes: +NITROFURANTOIN100 M2 ORAL; +PEPCID AC20 M2 PO; +ZOFRAN4 M1 ORAL
[2018-05-12 01:00] VITALS: BP 129/80
--- NOTE | 2018-05-12 01:00 | NUR ---
ED Nurse Note: pt ambulated to ED with c/o lower abdominal pain and IUD discomfort. reports NVD. Pain 12/31.. pt stated the pain is all over her abdomen, pt stated vomited yesterday and the other day. seen by karon. will continue to monitor
[2018-05-12] MEDS ORDERED: Morphine Sulfate 4mg/ml Inj (IV USE ONLY) IVP ONE (01:15)
[2018-05-12] MEDS ORDERED: Isovue-300 100ml vial INJ PRN (01:15)
[2018-05-12 01:41] LABS: HEMOGLOBIN 12.7 G/DL (12.0-16.0); MEAN CORPUSCULAR VOLUME 90 FL (80-99); PLATELET COUNT 298 K/UL (150-450); RED BLOOD COUNT 4.22 M/UL (4.20-5.40); WHITE BLOOD COUNT 13.3 K/UL (4.8-10.8)
[2018-05-12 01:43] LABS: APPEARANCE,URINE SLIGHTLY CLOUDY; BILIRUBIN, URINE NEGATIVE (NEGATIVE); COLOR,URINE PALE YELLOW; GLUCOSE, URINE (UA) NEGATIVE (NEGATIVE); KETONES,URINE NEGATIVE (NEGATIVE); LEUKOCYTE ESTERASE ,URINE 1+ (NEGATIVE); NITRITE,URINE NEGATIVE (NEGATIVE); PH,URINE 7 (4.5-8.0); PROTEIN,URINE NEGATIVE (NEGATIVE); UROBILINOGEN,URINE 1 MG/DL (0.0-1.0)
[2018-05-12 01:50] LABS: ANION GAP 8 mmol/L (5-15); BLOOD UREA NITROGEN 14 mg/dL (7-18); CALCIUM 8.4 MG/DL (8.5-10.1); CARBON DIOXIDE 27 MMOL/L (21-32); CHLORIDE 104 MMOL/L (98-107); CREATININE 0.9 MG/DL (0.55-1.30); POTASSIUM 4.2 MMOL/L (3.5-5.1); SODIUM 139 MMOL/L (136-145)
[2018-05-12 01:54] LABS: ALANINE AMINOTRANSFERASE 28 U/L (12-78); ALBUMIN 3.2 G/DL (3.4-5.0); ALBUMIN/GLOBULIN RATIO 0.9 (1.0-2.7); ALKALINE PHOSPHATASE 56 U/L (46-116); ASPARTATE AMINO TRANSFERASE 12 U/L (15-37); BILIRUBIN,TOTAL 0.1 MG/DL (0.2-1.0)
[2018-05-12 03:30] VITALS: BP 124/93
--- NOTE | 2018-05-12 03:30 | NUR ---
ED Nurse Note: COVERING FOR PRIMARY NURSE ON BREAK, PT IN BED AWAKE, ALERT AND ORIENTED X 4, ASSISTED TO BATHROOM, PT IS AMBULATORY WITH STEADY GAIT, PT STATES HER ABD PAIN IS INCREASING TO 8-9/10 AND ASKING FOR MORE PAIN MEDS, PT PLACED ON CARDIAC MONITORINGL V/S STABLE, IV SITE PATENT, INFORMED OF PT PAIN LEVEL, WILL RESUME CARE ORDERED AND CONTINUE TO CLOSELY MONITOR WHILE COVERING PRIMARY NURSE.
[2018-05-12] MEDS ORDERED: ACETAMINOPHEN-1 EAC1 ORAL (03:55)
[2018-05-12] MEDS ORDERED: COLACE100 MG ORAL (03:55)
[2018-05-12 04:00] VITALS: BP 124/93
--- NOTE | 2018-05-12 04:00 | NUR ---
ED Nurse Note: pt was cleared for discharge by karon, stanley instruction and prescription explained and pt able to verbalize understanding. id band removed. vss, aox4. pt walked with steady gait. pt walk out of the with all belongings.
--- NOTE | 2018-05-12 04:55 | Emergency Room Report ---
History of Present Illness General Chief Complaint: Abdominal Pain Source: Patient Present Illness HPI 32-year-old female presents ED for evaluation of abdominal pain. Pain is sharp , 8 out of 10, nonradiating. Localized lower abdomen. Patient states that he needs her IUD removed. States that it feels out of place. Denies any vaginal bleeding or discharge. States she was seen here a few days ago for same abdominal pain. States the medication she was prescribed are not helping. No other aggravating or relieving factors. Denies any other associated symptoms Allergies: Coded Allergies: PEANUT (Verified Allergy, Unknown, 05/12/18) Patient History Past Surgical History: appy Pertinent Family History: none Social History: Denies: smoking, alcohol use, drug use Now: No Immunizations: UTD Reviewed Nursing Documentation: PMH: Agreed; PSxH: Agreed Nursing Documentation-PMH Past Medical History: No History, Except For Hx Asthma: Yes - Acute bronchitis Hx Gastrointestinal Problems: Yes - appendectomy 2001 Review of Systems All Other Systems: negative except mentioned in HPI Physical Exam Vital Signs Date Time Temp Pulse Resp B/P (MAP) Pulse Ox O2 Delivery O2 Flow Rate FiO2 05/12/18 00:50 98.1 84 14 129/80 97 Room Air Sp02 EP Interpretation: reviewed, normal General Appearance: alert, GCS 15, non-toxic, mild distress Head: normocephalic, atraumatic Eyes: bilateral eye normal inspection, bilateral eye PERRL ENT: hearing grossly normal, normal pharynx, no angioedema, normal voice Neck: full range of motion, supple/symm/no masses Respiratory: chest non-tender, lungs clear, normal breath sounds, speaking full sentences Cardiovascular #1: regular rate, rhythm, no edema Cardiovascular #2: 2+ carotid (R), 2+ carotid (L), 2+ radial (R), 2+ radial (L) , 2+ dorsalis pedis (R), 2+ dorsalis pedis (L) Gastrointestinal: normal bowel sounds, soft, non-distended, no guarding, no rebound, tenderness Rectal: deferred Genitourinary: normal inspection, no CVA tenderness Musculoskeletal: back normal, gait/station normal, normal range of motion, non- tender Neurologic: alert, oriented x3, responsive, motor strength/tone normal, sensory intact, speech normal Psychiatric: judgement/insight normal, memory normal, mood/affect normal, no suicidal/homicidal ideation Reflexes: 3+ bicep (R), 3+ bicep (L), 3+ tricep (R), 3+ tricep (L), 3+ knee (R) , 3+ knee (L) Skin: normal color, no rash, warm/dry, well hydrated Lymphatic: no adenopathy Medical Decision Making Diagnostic Impression: Primary Impression: Abdominal pain Qualified Codes: R10.30 - Lower abdominal pain, unspecified Additional Impression: IUD check up ER Course Hospital Course 32-year-old F presents to ED with abdominal pain Differential diagnosis includes-appendicitis, cholecystitis, small bowel obstruction, gastritis, Clinical course Patient placed on stretcher. On review of EMR, patient was here a few days ago with similar pain. Lab workup was unremarkable. Patient was subsequently discharged home with states prescriptions are not helping. After initial history and physical I ordered labs, IV fluids, pain medications and CT scan Labs - no leukocytosis, electrolytes ok, LFTs normal, UA unremarkable CT scan reading shows no acute pathology, IUD position not certain There is significant fecal impaction. Discussed with patient. On reassessment pain is improved. I discussed with patient that we were unable to remove IUD and she needs to follow-up with [facility]. States she does have her own [facility] We will prescribe pain meds, stool softeners. Safe for discharge or close outpatient follow-up I feel this is a highly complex case requiring extensive working including EKG/ Rhythm strip, Xray/CT/US, Blood/urine lab work, repeat exams while in ED, and administration of strong opiates/narcotics for pain control, admission to hospital or close patient follow up. Diagnosis - abdominal pain, IUD check up Stable and discharged to home with Rx Tylenol #3, Colace. Followup with PMD/ OBGYN. Return to ED if symptoms recur or worsen Labs Test 05/12/18 01:00 05/12/18 01:25 Urine Color Pale yellow Urine Appearance Slightly cloudy Urine pH 7 (4.5-8.0) Urine Specific [place] 1.015 (1.005-1.035) Urine Protein Negative (NEGATIVE) Urine Glucose (UA) Negative (NEGATIVE) Urine Ketones Negative (NEGATIVE) Urine Blood 2+ (NEGATIVE) Urine Nitrite Negative (NEGATIVE) Urine Bilirubin Negative (NEGATIVE) Urine Urobilinogen 1 MG/DL (0.0-1.0) Urine Leukocyte Esterase 1+ (NEGATIVE) Urine RBC 0-2 /HPF (0 - 2) Urine WBC 0-2 /HPF (0 - 2) Urine Squamous Epithelial Cells Occasional /LPF Urine Amorphous Sediment Few /LPF (NONE) Urine Bacteria Few /HPF (NONE) Urine HCG, Qualitative Negative (NEGATIVE) White Blood Count 13.3 K/UL (4.8-10.8) Red Blood Count 4.22 M/UL (4.20-5.40) Hemoglobin 12.7 G/DL (12.0-16.0) Hematocrit 38.0 % (37.0-47.0) Mean Corpuscular Volume 90 FL (80-99) Mean Corpuscular Hemoglobin 30.1 PG (27.0-31.0) Mean Corpuscular Hemoglobin Concent 33.5 G/DL (32.0-36.0) Red Cell Distribution Width 13.0 % (11.6-14.8) Platelet Count 298 K/UL (150-450) Mean Platelet Volume 6.8 FL (6.5-10.1) Neutrophils (%) (Auto) % (45.0-75.0) Lymphocytes (%) (Auto) % (20.0-45.0) Monocytes (%) (Auto) % (1.0-10.0) Eosinophils (%) (Auto) % (0.0-3.0) Basophils (%) (Auto) % (0.0-2.0) Differential Total Cells Counted 100 Neutrophils % (Manual) 93 % (45-75) Lymphocytes % (Manual) 5 % (20-45) Monocytes % (Manual) 2 % (1-10) Eosinophils % (Manual) 0 % (0-3) Basophils % (Manual) 0 % (0-2) Band Neutrophils 0 % (0-8) Platelet Estimate Adequate Platelet Morphology Normal Sodium Level 139 MMOL/L (136-145) Potassium Level 4.2 MMOL/L (3.5-5.1) Chloride Level 104 MMOL/L (98-107) Carbon Dioxide Level 27 MMOL/L (21-32) Anion Gap 8 mmol/L (5-15) Blood Urea Nitrogen 14 mg/dL (7-18) Creatinine 0.9 MG/DL (0.55-1.30) Estimat Glomerular Filtration Rate > 60 mL/min (>60) Glucose Level 138 MG/DL (74-106) Calcium Level 8.4 MG/DL (8.5-10.1) Total Bilirubin 0.1 MG/DL (0.2-1.0) Aspartate Amino Transf (AST/SGOT) 12 U/L (15-37) Alanine Aminotransferase (ALT/SGPT) 28 U/L (12-78) Alkaline Phosphatase 56 U/L (46-116) Total Protein 6.7 G/DL (6.4-8.2) Albumin 3.2 G/DL (3.4-5.0) Globulin 3.5 g/dL Albumin/Globulin Ratio 0.9 (1.0-2.7) Lipase 212 U/L (73-393) Human Chorionic Gonadotropin, Qual Negative (NEGATIVE) CT/MRI/US Diagnostic Results CT/MRI/US Diagnostic Results : Imaging Test Ordered: CT A/P Impression uncertain positioning of IUD. otherwise unremarkable CT of abdomen and pelvis Last Vital Signs Date Time Temp Pulse Resp B/P (MAP) Pulse Ox O2 Delivery O2 Flow Rate FiO2 05/12/18 04:00 98.1 60 14 124/93 98 Room Air Status: improved Disposition: HOME, SELF-CARE Condition: Stable Scripts Docusate Sodium* (COLACE*) 100 Mg Capsule 100 MG ORAL THREE TIMES A DAY, #30 CAP Prov: Timothy Gilman MD 05/12/18 Acetaminophen With Codeine (T#3) (TYLENOL #3 TAB*) Y Tab 1 TAB ORAL Q8H PRN for For Pain for 3 Days, TAB Prov: Timothy Gilman MD 05/12/18 Referrals: [facility],REFERRING (PCP) Cedrick Tapia. [facility] Patient Instructions: Intrauterine Device Insertion, Constipation, Adult, Easy- to-Read Timothy Gilman MD May 12, 2018 04:55
== END 2018-05-12 04:00 | disposition home or self-care (01) ==
LOC: EMR 01:26
DX: R10.30 Lower abdominal pain, unspecified (principal); Z30.431 Encounter for routine checking of intrauterine contraceptive device; Z91.010 Allergy to peanuts; Z90.49 Acquired absence of other specified parts of digestive tract
CPT/HCPCS: 36415; 74177; 80053; 81003; 81025; 83690; 84703; 85007; 85025; 96361; 96374; 96375; 99284; J2270; J2405; Q9967

== ENCOUNTER 2018-09-09 08:45 | Emergency (ER) | payer SELFPAY ==
[~2018-09-09] VITALS: Ht 165.1 cm; Wt 81.6 kg
[~2018-09-09 08:45] MED LIST changes: +ACETAMINOPHEN-1 EAC1 ORAL; +COLACE100 MG ORAL
--- NOTE | 2018-09-09 09:10 | NUR ---
ED Nurse Note: Patient walked in to ER c/o abdominal cramping 8/10 and heavy bleeding since 0300 this morning. pt aao x4 and ambulatory. skin clean and intact. calm and cooperative but gramicing due to severe abdominal pain. per pt, she wet only 2 pads but in the morning her blacket and linen in bed were wet with blood from vagina. pt has been 4 times and 2 live given. pt reported that she is currently but does not know how many month it has been.
--- NOTE | 2018-09-09 09:14 | Emergency Room Report ---
History of Present Illness General Chief Complaint: Complications Source: Patient Present Illness HPI Patient present with complaints of passing blood clots vaginally and lower abdominal cramping patient was here previously in April had some discomfort secondary to intrauterine device She reports having that removed in the beginning of June And last week had taken a home which was positive Today she began having lower suprapubic discomfort and had passage of blood clot And presents for further eval Denies any vomiting or diarrhea Patient is Denies any fevers or chills Allergies: Coded Allergies: PEANUT (Verified Allergy, Unknown, 05/12/18) Patient History Past Medical History: see triage record Pertinent Family History: none Last Menstrual Period: 07/26/18 Now: Yes : 3 Para: 2 Reviewed Nursing Documentation: PMH: Agreed; PSxH: Agreed Nursing Documentation-PM Past Medical History: No History, Except For Hx Asthma: Yes - Acute bronchitis Hx Gastrointestinal Problems: Yes - appendectomy 2001 Review of Systems All Other Systems: negative except mentioned in HPI Physical Exam Vital Signs Date Time Temp Pulse Resp B/P (MAP) Pulse Ox O2 Delivery O2 Flow Rate FiO2 09/09/18 08:50 98.1 84 22 97 Room Air Sp02 EP Interpretation: reviewed, normal General Appearance: well appearing, no apparent distress Head: normocephalic, atraumatic Eyes: bilateral eye PERRL, bilateral eye EOMI ENT: hearing grossly normal, normal pharynx, TMs + canals normal, uvula midline Neck: full range of motion, supple, no meningismus, no bony tend Respiratory: lungs clear, normal breath sounds, no rhonchi, no respiratory distress, no retraction, no accessory muscle use Cardiovascular #1: normal peripheral pulses, regular rate, rhythm, no edema, no gallop, no JVD, no murmur Gastrointestinal: normal bowel sounds, non tender, soft, no mass, no organomegaly, non-distended, no guarding, no hernia, no pulsatile mass, no rebound Genitourinary: no CVA tenderness Musculoskeletal: normal inspection Neurologic: oriented x3, responsive, junior media buyer III-XII nml as tested, motor strength/ tone normal, sensory intact Psychiatric: mood/affect normal Skin: normal color, no rash, warm/dry, palpation normal Lymphatic: normal inspection, no adenopathy Medical Decision Making Diagnostic Impression: Primary Impression: Threatened ER Course With the patient's history and examination, multiple differentials considered, including but not limited to , ectopic , ovarian torsion, gastritis, cholecystitis, pancreatitis, appendicitis Patient's ultrasound reveals or 6 week intrauterine gestation No obvious ectopic Blood work is otherwise at baseline levels And patient stable for close outpatient follow-up Labs Test 09/09/18 09:10 09/09/18 09:40 White Blood Count 11.0 K/UL (4.8-10.8) Red Blood Count 4.24 M/UL (4.20-5.40) Hemoglobin 12.5 G/DL (12.0-16.0) Hematocrit 37.8 % (37.0-47.0) Mean Corpuscular Volume 89 FL (80-99) Mean Corpuscular Hemoglobin 29.6 PG (27.0-31.0) Mean Corpuscular Hemoglobin Concent 33.2 G/DL (32.0-36.0) Red Cell Distribution Width 12.5 % (11.6-14.8) Platelet Count 300 K/UL (150-450) Mean Platelet Volume 5.8 FL (6.5-10.1) Neutrophils (%) (Auto) 72.9 % (45.0-75.0) Lymphocytes (%) (Auto) 18.3 % (20.0-45.0) Monocytes (%) (Auto) 6.8 % (1.0-10.0) Eosinophils (%) (Auto) 0.8 % (0.0-3.0) Basophils (%) (Auto) 1.3 % (0.0-2.0) Sodium Level 136 MMOL/L (136-145) Potassium Level 3.5 MMOL/L (3.5-5.1) Chloride Level 103 MMOL/L (98-107) Carbon Dioxide Level 26 MMOL/L (21-32) Anion Gap 7 mmol/L (5-15) Blood Urea Nitrogen 9 mg/dL (7-18) Creatinine 0.8 MG/DL (0.55-1.30) Estimat Glomerular Filtration Rate > 60 mL/min (>60) Glucose Level 99 MG/DL (74-106) Calcium Level 8.7 MG/DL (8.5-10.1) Total Bilirubin 0.3 MG/DL (0.2-1.0) Aspartate Amino Transf (AST/SGOT) 19 U/L (15-37) Alanine Aminotransferase (ALT/SGPT) 29 U/L (12-78) Alkaline Phosphatase 53 U/L (46-116) Total Protein 6.9 G/DL (6.4-8.2) Albumin 3.2 G/DL (3.4-5.0) Globulin 3.7 g/dL Albumin/Globulin Ratio 0.9 (1.0-2.7) Lipase 94 U/L (73-393) Human Chorionic Gonadotropin, Quant 09246 mIU/mL (1-6) Urine Color Yellow Urine Appearance Clear Urine pH 5 (4.5-8.0) Urine Specific [place] 1.025 (1.005-1.035) Urine Protein Negative (NEGATIVE) Urine Glucose (UA) Negative (NEGATIVE) Urine Ketones 1+ (NEGATIVE) Urine Blood 5+ (NEGATIVE) Urine Nitrite Negative (NEGATIVE) Urine Bilirubin Negative (NEGATIVE) Urine Urobilinogen Normal MG/DL (0.0-1.0) Urine Leukocyte Esterase 1+ (NEGATIVE) Urine RBC 2-4 /HPF (0 - 2) Urine WBC 2-4 /HPF (0 - 2) Urine Squamous Epithelial Cells Few /LPF (NONE/OCC) Urine Bacteria Few /HPF (NONE) Urine Mucus Many /LPF (NONE/OCC) Urine HCG, Qualitative Positive (NEGATIVE) CT/MRI/US Diagnostic Results CT/MRI/US Diagnostic Results : Impression pelvic ultrasound:IMPRESSION: Single living IUP 6 weeks gestational age. Trace free fluid. Small uterine fibroid Last Vital Signs Date Time Temp Pulse Resp B/P (MAP) Pulse Ox O2 Delivery O2 Flow Rate FiO2 09/09/18 08:50 98.1 84 22 97 Room Air Status: improved Disposition: HOME, SELF-CARE Condition: Improved Referrals: NON PHYSICIAN (PCP) Additional Instructions: Patient is provided with the discharge instructions notified to follow up with primary doctor in the next 2-3 days otherwise return to the er with any worsening symptoms. Please note that this report is being documented using [employer] technology. This can lead to erroneous entry secondary to incorrect interpretation by the dictating instrument. Fernanda Vasquez DO September 09, 2018 09:13
[2018-09-09 09:22] LABS: BASOPHILS % (AUTO) 1.3 % (0.0-2.0); EOSINOPHILS % (AUTO) 0.8 % (0.0-3.0); HEMATOCRIT 37.8 % (37.0-47.0); HEMOGLOBIN 12.5 G/DL (12.0-16.0); LYMPHOCYTES % (AUTO) 18.3 % (20.0-45.0); MEAN CORPUSCULAR VOLUME 89 FL (80-99); MONOCYTES % (AUTO) 6.8 % (1.0-10.0); NEUTROPHILS % (AUTO) 72.9 % (45.0-75.0); PLATELET COUNT 300 K/UL (150-450); RED BLOOD COUNT 4.24 M/UL (4.20-5.40); RED CELL DISTRIBUTION WIDTH 12.5 % (11.6-14.8)
[2018-09-09 09:34] LABS: ANION GAP 7 mmol/L (5-15); BLOOD UREA NITROGEN 9 mg/dL (7-18); CALCIUM 8.7 MG/DL (8.5-10.1); CARBON DIOXIDE 26 MMOL/L (21-32); CHLORIDE 103 MMOL/L (98-107); CREATININE 0.8 MG/DL (0.55-1.30); POTASSIUM 3.5 MMOL/L (3.5-5.1); SODIUM 136 MMOL/L (136-145)
[2018-09-09 09:39] LABS: ALANINE AMINOTRANSFERASE 29 U/L (12-78); ALBUMIN 3.2 G/DL (3.4-5.0); ALBUMIN/GLOBULIN RATIO 0.9 (1.0-2.7); ALKALINE PHOSPHATASE 53 U/L (46-116); ASPARTATE AMINO TRANSFERASE 19 U/L (15-37); BILIRUBIN,TOTAL 0.3 MG/DL (0.2-1.0)
--- NOTE | 2018-09-09 09:42 | NUR ---
ED Nurse Note: Ultrasound initiated at bedside.
[2018-09-09 09:51] LABS: APPEARANCE,URINE CLEAR; BILIRUBIN, URINE NEGATIVE (NEGATIVE); GLUCOSE, URINE (UA) NEGATIVE (NEGATIVE); KETONES,URINE 1+ (NEGATIVE); LEUKOCYTE ESTERASE ,URINE 1+ (NEGATIVE); NITRITE,URINE NEGATIVE (NEGATIVE); PH,URINE 5 (4.5-8.0); PROTEIN,URINE NEGATIVE (NEGATIVE); UROBILINOGEN,URINE NORMAL MG/DL (0.0-1.0)
[2018-09-09 09:59] LABS: COLOR,URINE YELLOW
--- NOTE | 2018-09-09 10:55 | NUR ---
ED Nurse Note: US done at the bedside.
--- NOTE | 2018-09-09 11:28 | Diagnostic Imaging Report ---
Indication: 33-year-old female. . IUD removed June 2018. Technique: Grayscale and duplex Doppler imaging of the pelvis performed utilizing a transabdominal scan and endovaginal scan. Comparison: None Findings: Single living IUP demonstrated gestational age estimated at 6 weeks. heart tones demonstrated. Small subchorionic collection noted consistent with a subchorionic bleed. Yolk sac identified. There is a small hypoechoic fibroid in the fundal region suspected measuring 2 cm. Uterus is retroverted. Both ovaries demonstrated showing dopplerable blood flow. The right ovary measures 3.7 x 2.8 x 4.4 cm. The left ovary measures 3.2 x 1.5 x 2.6 cm. There is minimal free fluid. IMPRESSION: Single living IUP 6 weeks gestational age. Trace free fluid. Small uterine fibroid
[2018-09-09 12:20] VITALS: BP 122/84
--- NOTE | 2018-09-09 12:20 | NUR ---
ER DISCHARGE NOTE: Patient is cleared to be discharged per ERMD after discussing about US results, pt is aox4, on room air, with stable vital signs. pt was given dc instructions with lab and US results printed out, pt was able to verbalize understanding, pt id band removed. pt is able to ambulate with steady gait. pt took all belongings.
== END 2018-09-09 12:20 | disposition home or self-care (01) ==
LOC: EMR 09:05
DX: O20.0 Threatened abortion (principal); O34.11 Maternal care for benign tumor of corpus uteri, first trimester; D25.9 Leiomyoma of uterus, unspecified; Z3A.01 Less than 8 weeks gestation of pregnancy; Z91.010 Allergy to peanuts; Z90.89 Acquired absence of other organs
CPT/HCPCS: 36415; 76801; 76830; 80053; 81003; 81025; 83690; 84702; 85025; 99284